=== PATIENT | female | born 1950 | race Caucasian/White ===

== ENCOUNTER 2018-04-09 17:40 | Emergency (ER) | payer MEDICARE, OTHER ==
--- NOTE | 2018-04-09 19:54 | ED ---
Throat Pain/Nasal Congestion - HPI Summary HPI Summary: Patient complains of visual changes in right eye involving "floating pieces of lint", and blurry vision 5 days. Denies any pain or loss of vision. Denies fever, cough, sore throat, CP, SOB, N/V/D, abdominal pain, change in urinary BM. Medical history is endometrial cancer, denies other medical history. History of cataract surgery left eye 25 years ago. Uses cheater's to read, denies contact lens use - History of Current Complaint Chief Complaint: EDGeneral Time Seen by Provider: 04/09/18 17:58 Hx Obtained From: Patient Onset/Duration: Gradual Onset Severity: Moderate Associated Signs And Symptoms: Positive: Negative Cough: None - Allergies/Home Medications Allergies/Adverse Reactions: Allergies Allergy/AdvReac Type Severity Reaction Status Date / Time No Known Allergies Allergy Verified 04/09/18 17:50 PMH/Surg Hx/FS Hx/Imm Hx Endocrine/Hematology History: Denies: Hx Diabetes Cardiovascular History: Denies: Hx Congestive Heart Failure, Hx Hypertension, Hx Pacemaker/ICD GI History: Comment Only: Other GI Disorders - LACTOSE INTOLERANCE History: Denies: Hx Renal Disease Musculoskeletal History: Denies: Hx Rheumatoid Arthritis Sensory History: Denies: Hx Hearing Aid Psychiatric History: Denies: Hx Panic Disorder - Cancer History Cancer Type, Location and Year: uterine ca, 03/2014 Hx Chemotherapy: No - uterine cancer Hx Radiation Therapy: No - Surgical History Surgery Procedure, Year, and Place: distant hemorrhoidectomy. cataracts. d&c Infectious Disease History: No Infectious Disease History: Denies: Traveled Outside the [place] in Last 30 Days - Social History Alcohol Use: Rare Substance Use Type: Reports: None Smoking Status (MU): Never Smoked Tobacco Review of Systems Constitutional: Negative Positive: Blurred Vision, Other ENT: Negative Cardiovascular: Negative Respiratory: Negative Gastrointestinal: Negative Genitourinary: Negative Musculoskeletal: Negative Skin: Negative Neurological: Negative Psychological: Normal All Other Systems Reviewed And Are Negative: Yes Physical Exam - Summary Physical Exam Summary: No loss of visual field. Decreased visual acuity Triage Information Reviewed: Yes Vital Signs On Initial Exam: Initial Vitals Temp Pulse Resp BP Pulse Ox 97.8 F 62 16 165/67 95 04/09/18 17:45 04/09/18 17:45 04/09/18 17:45 04/09/18 17:45 04/09/18 17:45 Vital Signs Reviewed: Yes Appearance: Positive: Well-Appearing Skin: Positive: Warm Head/Face: Positive: Normal Head/Face Inspection Eyes: Positive: Normal, EOMI, TINA, Conjunctiva Clear. Negative: Discharge Neck: Positive: Supple Respiratory/Lung Sounds: Positive: Clear to Auscultation Cardiovascular: Positive: Normal Abdomen Description: Positive: Nontender Musculoskeletal: Positive: Normal Neurological: Positive: Normal Psychiatric: Positive: Normal AVPU Assessment: Alert - Katty Coma Scale Best Eye Response: 4 - Spontaneous Best Motor Response: 6 - Obeys Commands Best Verbal Response: 5 - Oriented Coma Scale Total: 15 Diagnostics - Vital Signs Vital Signs Temp Pulse Resp BP Pulse Ox 04/09/18 17:45 97.8 F 62 16 165/67 95 - Laboratory Lab Statement: Any lab studies that have been ordered have been reviewed, and results considered in the medical decision making process. EENT Course/Dx - Course Course Of Treatment: Patient complains of visual changes in right eye involving "floating pieces of lint", and blurry vision 5 days. Denies any pain or loss of vision. Denies fever, cough, sore throat, CP, SOB, N/V/D, abdominal pain, change in urinary BM. Medical history is endometrial cancer, denies other medical history. History of cataract surgery left eye 25 years ago. Uses cheater's to read, denies contact lens use. Vital signs within normal limits. Discussed patient with dr vazquez opthamology who recommended patient meet him at his clinic tomorrow am at 8. - Diagnoses Provider Diagnoses: Floaters in visual field Discharge - Sign-Out/Discharge Documenting (check all that apply): Patient Departure - Discharge Plan Condition: Stable Disposition: HOME Patient Education Materials: Blurred Vision (ED), Visual Floaters (ED) Referrals: Jaclyn Vidales MD [Primary Care Provider] - Inder Vazquez MD [Medical Doctor] - Additional Instructions: Follow-up with ophthalmology Dr. Vazquez tomorrow 8a.m. at his clinic. Return to ED for any new or worsening symptoms - Billing Disposition and Condition Condition: STABLE Disposition: Home
[2018-04-09 20:39] VITALS: BP 156/70
== END 2018-04-09 20:32 | disposition home or self-care (01) ==
LOC: ED 17:40
DX: H43.391 Other vitreous opacities, right eye (principal); H53.8 Other visual disturbances
CPT/HCPCS: 99282

== ENCOUNTER 2019-01-25 11:02 | Emergency (ER) | payer MEDICARE ==
[2019-01-25] MEDS ORDERED: NS 0.9% 1000 ML** 1,000 ML IV ONE ×2 (13:15→17:38)
[2019-01-25] MEDS ORDERED: Ketorolac INJ* 30 MG/ML 1 ML VIAL IV PUSH ONE (13:24)
--- NOTE | 2019-01-25 13:33 | ED ---
Abdominal Pain/Female - HPI Summary HPI Summary: The patient is a 68 y/o F presenting to [facility] with a chief complaint of sudden onset left flank pain starting this morning. She reports that she first thought the pain was possibly from gas, but then the pain hadn't subsided but rather worsened. The constant pain is currently rated 6/10 in severity. She additionally c/o nausea and dry heaving. She denies dysuria, hematuria, diarrhea , and constipation. She had a normal BM this morning. No hx of kidney stones. - History of Current Complaint Chief Complaint: EDAbdPain Stated Complaint: LEFT SIDE PAIN PER PT Time Seen by Provider: 01/25/19 12:30 Hx Obtained From: Patient Onset/Duration: Sudden Onset, Lasting Hours - since this mroning, Still Present Timing: Constant Severity Initially: Mild Severity Currently: Moderate Pain Intensity: 6 Pain Scale Used: 0-10 Numeric Location: Flank - left Radiates: No Character: Sharp Aggravating Factor(s): Nothing Alleviating Factor(s): Nothing Associated Signs and Symptoms: Positive: Nausea, Vomiting - dry heaving. Negative: Constipation, Urinary Symptoms - dysuria, hematuria, Diarrhea Allergies/Adverse Reactions: Allergies Allergy/AdvReac Type Severity Reaction Status Date / Time No Known Allergies Allergy Verified 01/25/19 11:08 PMH/Surg Hx/FS Hx/Imm Hx Endocrine/Hematology History: Denies: Hx Diabetes Cardiovascular History: Denies: Hx Congestive Heart Failure, Hx Hypercholesterolemia, Hx Hypertension , Hx Pacemaker/ICD GI History: Comment Only: Other GI Disorders - LACTOSE INTOLERANCE History: Denies: Hx Renal Disease Musculoskeletal History: Denies: Hx Rheumatoid Arthritis Sensory History: Denies: Hx Hearing Aid Psychiatric History: Denies: Hx Panic Disorder - Cancer History Cancer Type, Location and Year: uterine ca, 03/2014 Hx Chemotherapy: No - uterine cancer Hx Radiation Therapy: No - Surgical History Surgery Procedure, Year, and Place: distant hemorrhoidectomy. cataracts. d&c Infectious Disease History: No Infectious Disease History: Denies: Traveled Outside the [place] in Last 30 Days - Family History Known Family History: Negative: Diabetes - Social History Alcohol Use: Rare Hx Substance Use: No Substance Use Type: Reports: None Hx Tobacco Use: No Smoking Status (MU): Never Smoked Tobacco Do You Chew or Dip Tobacco: No Have You Chewed or Dipped Tobacco in the LAST YEAR: No Have You Smoked in the Last Year: No Review of Systems Positive: Vomiting - dry heaving, Nausea, Other - NEGATIVE: constipation. Negative: Diarrhea Positive: flank pain - left. Negative: dysuria, hematuria All Other Systems Reviewed And Are Negative: Yes Physical Exam - Summary Physical Exam Summary: VITAL SIGNS: Reviewed. GENERAL: Patient is a well-developed and nourished female who is lying comfortable in the stretcher. Patient is not in any acute respiratory distress. HEAD AND FACE: Normocephalic and atraumatic. EYES: PERRLA, EOMI x 2, No injected conjunctiva. EARS: Hearing grossly intact. Ear canals and tympanic membranes are WNL. MOUTH: Oropharynx within normal limits. NECK: Supple, trachea is midline, no adenopathy, no JVD. CHEST: Symmetric, no tenderness at palpation LUNGS: Clear to auscultation bilaterally. No wheezing or crackles. CVS: RRR, S1 and S2 present, no murmurs or gallops appreciated. ABDOMEN: Soft, tenderness in the left flank. No signs of distention. Positive bowel sounds. No rebound no guarding, and no masses palpated. No abdominal bruit or pulsations. EXTREMITIES: FROM in all major joints, no edema, no cyanosis or clubbing. NEURO: Alert and oriented x 3. No acute neurological deficits. Speech is normal. SKIN: Dry and warm Triage Information Reviewed: Yes Vital Signs On Initial Exam: Initial Vitals Temp Pulse Resp BP Pulse Ox 97.3 F 48 19 146/74 97 01/25/19 11:05 01/25/19 11:05 01/25/19 11:05 01/25/19 11:05 01/25/19 11:05 Vital Signs Reviewed: Yes Diagnostics - Vital Signs Vital Signs Temp Pulse Resp BP Pulse Ox 01/25/19 13:05 97.4 F 51 19 153/75 98 01/25/19 11:05 97.3 F 48 19 146/74 97 - Laboratory Result Diagrams: 01/25/19 13:33 01/25/19 13:32 Lab Statement: Any lab studies that have been ordered have been reviewed, and results considered in the medical decision making process. - CT CT Abd/Pel CT Interpretation Completed By: Radiologist Summary of CT Findings: 1. There is a 6 mm calcification in the proximal left ureter with ipsilateral moderate hydronephrosis. 2. Additional chronic and degenerative changes as described above. ED physician has reviewed this report. - EKG 13:56 Cardiac Rate: NL - 69 BPM EKG Rhythm: Sinus Rhythm EKG Comparison: No Significant Change - Similar to previous EKG on 03/14/14 Summary of EKG Findings: Nml axis, no ST elevations Re-Evaluation - Re-Evaluation First Eval Re-Evaluation Time: 18:05 Change: Improved Comment: I discussed lab and imaging result with the patient. We also discusssed discharge home and follow up with Dr. Wise. Abdominal Pain Fem Course/Dx - Course Course Of Treatment: The patient is a 68 y/o F presenting to [facility] with a chief complaint of sudden onset left flank pain starting this morning. She reports that she first thought the pain was possibly from gas, but then the pain hadn't subsided but rather worsened. The constant pain is currently rated 6/10 in severity. She additionally c/o nausea and dry heaving. She denies dysuria, hematuria, diarrhea, and constipation. She had a normal BM this morning. No hx of kidney stones. In the physical exam the patient has positive left quadrant to vertebral angle tenderness. Therefore, she was given IV fluids, Zofran and Toradol for the pain. Test results without any significant abnormality except for glucose of 166 and lactic acid of 2.1. Abdominopelvic CT impression: There is a 6 mm calcification in the proximal left ureter with ipsilateral moderate hydronephrosis. Additional chronic and degenerative changes described in the fall report. Patient was given Toradol to improve the pain. We did a catheter urinalysis, and there are no signs of UTI. The patient was given an additional dose of Zofran for nausea and Morphine for pain, and the symptoms subsided. The patient was observed for a couple hours and the ED and the symptoms did not return. I discussed case with Dr. Wise and he agrees with no antibiotics at this time and since the patient is feeling better she will be discharged home with follow-up with his office. I discussed all the findings and test results with the patient. Patient was instructed to return to the emergency room immediately if any of the symptoms return worsens. Plan of care was discussed with the patient and understands and agrees. All questions were answered at patient satisfaction. There were no further complaints or concerns. Lung exam before discharge: CTA B/L. Good air exchange. No wheezing or crackles heard. CVS : S1 and S2 present. No murmurs appreciated. Patient is alert and oriented x 3. Patient is hemodynamically stable. Patient will be discharged home with follow up PCP in the next 2-3 days. - Diagnoses Differential Diagnosis: Positive: Bowel Obstruction, Constipation, Diverticulitis, Renal Colic, Urinary Tract Infection Provider Diagnoses: Renal colic, Kidney stone - Provider Notifications Discussed Care Of Patient With: Jimmy Wise - urology Time Discussed With Above Provider: 16:00 Instructed by Provider To: Other - I spoke with Dr. Wise concerning patient' s appearance. I spoke with him again at [address] results being receieved. He thinks that the patient should be discharged at this time. Discharge - Sign-Out/Discharge Documenting (check all that apply): Patient Departure - Patient will be discharged home. Patient Received Moderate/Deep Sedation with Procedure: No - Discharge Plan Condition: Stable Disposition: HOME Prescriptions: oxyCODONE/Acetamin 5/325 MG* [Percocet 5/325 TAB*] 1 tab PO Q6H PRN #12 tab MDD 4 PRN Reason: Pain Patient Education Materials: Kidney Stones (ED), Renal Colic (ED) Referrals: Jaclyn Vidales MD [Primary Care Provider] - 3 Days Jimmy Wise MD [Medical Doctor] - 3 Days Additional Instructions: Please take medication as prescribed. FOLLOW UP WITH YOUR PRIMARY CARE PROVIDER WITHIN ONE WEEK. RETURN TO THE ED FOR ANY WORSENING OR NEW SYMPTOMS. - Billing Disposition and Condition Condition: STABLE Disposition: Home - Attestation Statements Document Initiated by Hugh: Yes Documenting Scribe: Radha Gaines Provider For Whom Hugh is Documenting (Include Credential): Dr. Lei Moralez MD Scribe Attestation: Radha Ambrocio scribed for Dr. Lei Moralez MD on 01/26/19 at 2126. Scribe Documentation Reviewed: Yes Provider Attestation: The documentation as recorded by the Radha lagos accurately reflects the service I personally performed and the decisions made by me, Dr. Lei Moralez MD Status of Scribe Document: Viewed
[2019-01-25 13:46] LABS: ABS Lymphocytes 0.8 10^3/ul (1.0-4.8); ABS Monocytes 0.2 10^3/ul (0-0.8); ABS Neutrophils 7.7 10^3/ul (1.5-7.7); Eosinophil % 0.1 %; Hematocrit 40 % (35-47); Hemoglobin 13.6 g/dL (12.0-16.0); Lymphocyte % 8.9 %; Mean Corpuscular HGB Conc 34 g/dL (31-36); Mean Corpuscular Hemoglobin 30 pg (27-31); Mean Corpuscular Volume 91 fL (80-97); Mean Platelet Volume 8.5 fL (7.4-10.4); Platelet Count 206 10^3/uL (150-450); Red Blood Count 4.47 10^6 /uL (3.70-4.87); Red Cell Distribution Width 13 % (10.5-15); White Blood Count 8.7 10^3/uL (3.5-10.8)
[2019-01-25 14:08] LABS: Troponin I 0.01 ng/mL (<0.04)
[2019-01-25 14:09] LABS: Albumin 4.3 g/dL (3.2-5.2); Albumin/Globulin Ratio 1.4 (1-3); BUN/Creatinine Ratio 15.7 (8-20); C Reactive Protein 2.62 mg/L (<8.01); Calcium 9.6 mg/dL (8.6-10.3); EGFR African American 83.2 (>60); EGFR Non-African American 68.8 (>60); Magnesium 1.9 mg/dL (1.9-2.7); Potassium 3.8 mmol/L (3.5-5.0); Total Bilirubin 0.4 mg/dL (0.2-1.0); Total Protein 7.3 g/dL (6.4-8.9)
[2019-01-25 15:57] LABS: Urine Appearance Cloudy; Urine Bacteria Absent (Absent); Urine Bilirubin Negative (Negative); Urine Blood 3+ (Negative); Urine Color Yellow; Urine Glucose Negative (Negative); Urine Ketones Negative (Negative); Urine Nitrite Negative (Negative); Urine Protein 1+(30 mg/dL) (Negative); Urine Red Blood Cell 3+(>10/hpf) (Absent); Urine Specific Gravity 1.018 (1.010-1.030); Urine Squamous Epithelial Cell Present (Absent); Urine Urobilinogen Negative (Negative); Urine White Blood Cell 1+(6-10/hpf) (Absent)
[2019-01-25] MEDS ORDERED: Ondansetron INJ* 2 MG/ML VIAL IV ONE (16:10)
[2019-01-25] MEDS ORDERED: Morphine 4 MG/ML VIAL (1 ml) 4 MG/ML VIAL IV ONE (16:10)
[2019-01-25 17:40] LABS: Urine Appearance Cloudy; Urine Bacteria Absent (Absent); Urine Bilirubin Negative (Negative); Urine Blood 3+ (Negative); Urine Color Yellow; Urine Glucose Negative (Negative); Urine Ketones Negative (Negative); Urine Nitrite Negative (Negative); Urine Protein Negative (Negative); Urine Red Blood Cell 3+(>10/hpf) (Absent); Urine Specific Gravity 1.015 (1.010-1.030); Urine Urobilinogen Negative (Negative); Urine White Blood Cell Trace(0-5/hpf) (Absent)
[2019-01-25 18:55] VITALS: BP 129/77
== END 2019-01-25 18:54 | disposition home or self-care (01) ==
LOC: ED 11:02
DX: N20.0 Calculus of kidney (principal); N13.30 Unspecified hydronephrosis; N20.1 Calculus of ureter
CPT/HCPCS: 36415; 74176; 80053; 81003; 81015; 82150; 82550; 83605; 83690; 83735; 83880; 84484; 85025; 86140; 87086; 93005; 96361; 96374; 96375; 99282; J1885; J2270; J2405

== ENCOUNTER 2021-08-13 14:08 | Inpatient (IN) ==
[2021-08-13] MEDS ORDERED: Dexamethasone IV 4 MG/ML VIAL 1 ml VIAL IV SLOW PU ONE (15:01)
[2021-08-13 16:15] LABS: Venous Bicarbonate HCO3 25.1 mmol/L (24-28)
[2021-08-13 16:26] LABS: Rapid COVID-19 Molecular Detected (Undetected)
[2021-08-13 16:31] LABS: ABS Lymphocytes 0.7 10^3/ul (1.0-4.8); ABS Monocytes 0.6 10^3/ul (0-0.8); ABS Neutrophils 5.1 10^3/ul (1.5-7.7); Eosinophil % 0.1 %; Hematocrit 39 % (35-47); Hemoglobin 13.6 g/dL (12.0-16.0); Lymphocyte % 11.3 %; Mean Corpuscular HGB Conc 35 g/dL (31-36); Mean Corpuscular Hemoglobin 30 pg (27-31); Mean Corpuscular Volume 87 fL (80-97); Mean Platelet Volume 8.9 fL (7.4-10.4); Platelet Count 188 10^3/uL (150-450); Red Blood Count 4.54 10^6 /uL (3.70-4.87); Red Cell Distribution Width 13 % (10-15); White Blood Count 6.4 10^3/uL (3.5-10.8)
[2021-08-13 16:33] LABS: Influenza A Molecular Negative (Negative); Influenza B Molecular Negative (Negative)
[2021-08-13 16:34] LABS: Albumin 3.6 g/dL (3.2-5.2); Albumin/Globulin Ratio 1.1 (1-3); Calcium 8.7 mg/dL (8.6-10.3); Globulin 3.2 g/dL (2-4); Potassium 3.4 mmol/L (3.5-5.0); Total Bilirubin 0.6 mg/dL (0.2-1.0); Total Protein 6.8 g/dL (6.4-8.9); eGFR CKD-EPI 94.6 (>60)
[2021-08-13 16:35] LABS: Troponin I 0.02 ng/mL (<0.03)
[2021-08-13 17:21] LABS: Ferritin 419.6 ng/mL (11-307)
[2021-08-13] MEDS ORDERED: Ondansetron 4 mg VIAL 2 MG/ML 2 ml VIAL IV PRN (18:07)
[2021-08-13] MEDS ORDERED: NS 0.9% 1000 ml BAG 1,000 ML IV SCH (18:15)
[2021-08-13] MEDS ORDERED: Iohexol 350 (CONTRAST) 500 ML MDV IV ONE (18:37)
[2021-08-13] MEDS: Enoxaparin 40 MG/0.4 ML SYR SUBCUT SCH (19:51)
[2021-08-13] MEDS: Potassium Chlor 20 meq TAB.ER PO SCH ×2 (19:52→23:20)
[2021-08-14 05:22] LABS: ABS Monocytes 0.4 10^3/ul (0-0.8); ABS Neutrophils 3.1 10^3/ul (1.5-7.7); Hematocrit 39 % (35-47); Hemoglobin 13.6 g/dL (12.0-16.0); Lymphocyte % 21.1 %; Mean Corpuscular HGB Conc 35 g/dL (31-36); Mean Corpuscular Hemoglobin 30 pg (27-31); Mean Corpuscular Volume 87 fL (80-97); Mean Platelet Volume 8.7 fL (7.4-10.4); Platelet Count 202 10^3/uL (150-450); Red Blood Count 4.54 10^6 /uL (3.70-4.87); Red Cell Distribution Width 12 % (10-15); White Blood Count 4.5 10^3/uL (3.5-10.8)
[2021-08-14 05:40] LABS: Blood Urea Nitrogen 14 mg/dL (6-24); CO2 Carbon Dioxide 21 mmol/L (22-32); Calcium 8.5 mg/dL (8.6-10.3); Chloride 103 mmol/L (101-111); Glucose 135 mg/dL (70-100); Sodium 134 mmol/L (135-145); eGFR CKD-EPI 95.6 (>60)
[2021-08-14 05:57] LABS: Anion Gap 10 mmol/L (2-11)
[2021-08-14] MEDS: Dexamethasone IV 4 MG/ML VIAL 1 ml VIAL IV SLOW PU SCH (08:08)
[2021-08-14 13:33] LABS: INR 1.14 (0.86-1.15)
[2021-08-14] MEDS ORDERED: Remdesivir 100 mg Vial 200 MG in NS 0.9% 250 ml 210 ML IV ONE (14:00)
[2021-08-14] MEDS: Enoxaparin 40 MG/0.4 ML SYR SUBCUT SCH (20:26)
[2021-08-15 06:01] LABS: INR 1.14 (0.86-1.15)
[2021-08-15 06:28] LABS: Albumin 3.3 g/dL (3.2-5.2); Albumin/Globulin Ratio 1.1 (1-3); Calcium 8.5 mg/dL (8.6-10.3); Globulin 2.9 g/dL (2-4); Potassium 3.8 mmol/L (3.5-5.0); Total Bilirubin 0.5 mg/dL (0.2-1.0); Total Protein 6.2 g/dL (6.4-8.9); eGFR CKD-EPI 97.5 (>60)
[2021-08-15] MEDS: Dexamethasone IV 4 MG/ML VIAL 1 ml VIAL IV SLOW PU SCH (09:55)
[2021-08-15] MEDS: Remdesivir 100 mg Vial 100 MG in NS 0.9% 250 ml 230 ML IV SCH (09:56)
[2021-08-15] MEDS ORDERED: NS 0.9% 500 ml BAG 500 ML IV ONE (10:36)
[2021-08-15] MEDS: Enoxaparin 40 MG/0.4 ML SYR SUBCUT SCH (19:45)
[2021-08-16 09:24] LABS: ABS Lymphocytes 1.5 10^3/ul (1.0-4.8); ABS Monocytes 0.9 10^3/ul (0-0.8); ABS Neutrophils 8.7 10^3/ul (1.5-7.7); Eosinophil % 0.1 %; Hematocrit 38 % (35-47); Hemoglobin 13.1 g/dL (12.0-16.0); Lymphocyte % 13.6 %; Mean Corpuscular HGB Conc 34 g/dL (31-36); Mean Corpuscular Hemoglobin 30 pg (27-31); Mean Corpuscular Volume 86 fL (80-97); Platelet Count 361 10^3/uL (150-450); Red Blood Count 4.43 10^6 /uL (3.70-4.87); Red Cell Distribution Width 12 % (10-15); White Blood Count 11.1 10^3/uL (3.5-10.8)
[2021-08-16 09:40] LABS: Albumin 3.3 g/dL (3.2-5.2); Calcium 8.7 mg/dL (8.6-10.3); Globulin 3.2 g/dL (2-4); Potassium 3.5 mmol/L (3.5-5.0); Total Bilirubin 0.6 mg/dL (0.2-1.0); Total Protein 6.5 g/dL (6.4-8.9); eGFR CKD-EPI 94.9 (>60)
[2021-08-16 09:41] LABS: INR 1.29 (0.86-1.15)
[2021-08-16] MEDS: Dexamethasone IV 4 MG/ML VIAL 1 ml VIAL IV SLOW PU SCH (09:42)
[2021-08-16] MEDS: Remdesivir 100 mg Vial 100 MG in NS 0.9% 250 ml 230 ML IV SCH ×2 (09:45→14:28)
[2021-08-16] MEDS ORDERED: NS 0.9% 1000 ml BAG 1,000 ML IV ONE (10:39)
[2021-08-16 15:05] LABS: Urine Appearance Cloudy; Urine Bilirubin Negative (Negative); Urine Blood 2+ (Negative); Urine Color Yellow; Urine Glucose Negative (Negative); Urine Ketones Negative (Negative); Urine Nitrite Negative (Negative); Urine Protein Negative (Negative); Urine Specific Gravity 1.008 (1.002-1.030); Urine Urobilinogen Negative (Negative)
[2021-08-16 15:10] LABS: Urine Bacteria Absent (Absent); Urine Red Blood Cell 3+(>10/hpf) (Absent); Urine Squamous Epithelial Cell Present (Absent); Urine White Blood Cell 3+(>20/hpf) (Absent)
[2021-08-16 18:35] LABS: C Reactive Protein 31.67 mg/L (<8.01)
[2021-08-16] MEDS ORDERED: Azithromycin 500 mg/250 ml NS 500 MG/250 ML BAG IVPB ONE (19:54)
[2021-08-16] MEDS: Enoxaparin 40 MG/0.4 ML SYR SUBCUT SCH (20:26)
[2021-08-16] MEDS: cefTRIAXone 1 gm/50 mL NS BAG 1 GM/50 ML BAG IVPB SCH (23:00)
[2021-08-17 06:41] LABS: INR 1.38 (0.86-1.15)
[2021-08-17 06:43] LABS: ABS Lymphocytes 1.6 10^3/ul (1.0-4.8); ABS Monocytes 0.8 10^3/ul (0-0.8); ABS Neutrophils 6.1 10^3/ul (1.5-7.7); Eosinophil % 0.5 %; Hematocrit 36 % (35-47); Hemoglobin 12.1 g/dL (12.0-16.0); Lymphocyte % 18.9 %; Mean Corpuscular HGB Conc 34 g/dL (31-36); Mean Corpuscular Hemoglobin 30 pg (27-31); Mean Corpuscular Volume 88 fL (80-97); Platelet Count 298 10^3/uL (150-450); Red Blood Count 4.04 10^6 /uL (3.70-4.87); Red Cell Distribution Width 13 % (10-15); White Blood Count 8.5 10^3/uL (3.5-10.8)
[2021-08-17 06:57] LABS: Albumin 2.8 g/dL (3.2-5.2); C Reactive Protein 38.46 mg/L (<8.01); Globulin 2.8 g/dL (2-4); Potassium 3.3 mmol/L (3.5-5.0); Total Bilirubin 0.5 mg/dL (0.2-1.0); Total Protein 5.6 g/dL (6.4-8.9); eGFR CKD-EPI 99.2 (>60)
[2021-08-17 07:22] LABS: Ferritin 200.2 ng/mL (11-307)
[2021-08-17] MEDS: Potassium Chlor 20 meq TAB.ER PO SCH ×2 (09:04→11:38)
[2021-08-17] MEDS: Dexamethasone IV 4 MG/ML VIAL 1 ml VIAL IV SLOW PU SCH (09:05)
[2021-08-17] MEDS: Remdesivir 100 mg Vial 100 MG in NS 0.9% 250 ml 230 ML IV SCH (09:11)
[2021-08-17] MEDS: cefTRIAXone 1 gm/50 mL NS BAG 1 GM/50 ML BAG IVPB SCH (21:18)
[2021-08-17] MEDS: Enoxaparin 40 MG/0.4 ML SYR SUBCUT SCH (21:45)
[2021-08-18 06:28] LABS: INR 1.42 (0.86-1.15)
[2021-08-18 06:29] LABS: Calcium 8.4 mg/dL (8.6-10.3); Globulin 2.9 g/dL (2-4); Potassium 3.8 mmol/L (3.5-5.0); Total Bilirubin 0.5 mg/dL (0.2-1.0); Total Protein 5.9 g/dL (6.4-8.9); eGFR CKD-EPI 100.5 (>60)
[2021-08-18] MEDS: Remdesivir 100 mg Vial 100 MG in NS 0.9% 250 ml 230 ML IV SCH (10:20)
[2021-08-18] MEDS: Dexamethasone IV 4 MG/ML VIAL 1 ml VIAL IV SLOW PU SCH (11:45)
[2021-08-18] MEDS ORDERED: Dexamethasone IV 4 MG/ML VIAL 1 ml VIAL IV SLOW PU ONE (12:00)
[2021-08-18] MEDS: cefTRIAXone 1 gm/50 mL NS BAG 1 GM/50 ML BAG IVPB SCH (21:30)
[2021-08-18] MEDS: Enoxaparin 40 MG/0.4 ML SYR SUBCUT SCH (21:30)
[2021-08-19 06:41] LABS: INR 1.36 (0.86-1.15)
[2021-08-19 06:57] LABS: Albumin 2.9 g/dL (3.2-5.2); Albumin/Globulin Ratio 0.9 (1-3); Calcium 8.4 mg/dL (8.6-10.3); Globulin 3.1 g/dL (2-4); Potassium 3.9 mmol/L (3.5-5.0); Total Bilirubin 0.5 mg/dL (0.2-1.0); eGFR CKD-EPI 96.7 (>60)
[2021-08-19] MEDS: Enoxaparin 40 MG/0.4 ML SYR SUBCUT SCH ×2 (10:06→21:47)
[2021-08-19] MEDS: Remdesivir 100 mg Vial 100 MG in NS 0.9% 250 ml 230 ML IV SCH (10:40)
[2021-08-19] MEDS: cefTRIAXone 1 gm/50 mL NS BAG 1 GM/50 ML BAG IVPB SCH (21:47)
[2021-08-20 10:07] VITALS: BP 104/63
[2021-08-20] MEDS: Enoxaparin 40 MG/0.4 ML SYR SUBCUT SCH (11:10)
== END 2021-08-20 14:20 | disposition home or self-care (01) | DRG 177 ==
LOC: EDHOLD 14:08 → ED 14:08 → SUATTDRO 18:07 → MED 21:20 → SUATTDRO 08-14 13:00
PROVIDERS: ADMIT Internal Medicine; ATTEND Internal Medicine